=== PATIENT | female | born 1995 | race American Indian/Alaskan Native ===

== ENCOUNTER 2020-02-12 18:06 | Emergency (ER) | payer OTHER ==
--- NOTE | 2020-02-12 19:06 | Emergency Department Report ---
HPI - General Time Seen by Provider: 02/12/20 18:56 - HPI HPI: Room 4 The patient is a 24-year-old female present with a chief complaint of miscarriage. The patient states approximate 1-2 hours ago while in a vehicle she felt her water break and then she passed her fetus vaginally. The patient states her LMP was 11/03/2019 but she has not yet had an ultrasound for this . Patient complains of pelvic cramping. ED Past Medical Hx - Past Medical History Previous Medical History?: No - Surgical History Past Surgical History?: No - Family History Family history: no significant - Social History Smoking Status: Never Smoker Substance Use Type: None - Medications Home Medications: Home Medications Medication Instructions Recorded Confirmed Last Taken Type HYDROcodone/APAP 5-325 [Vera 1 - 2 each PO Q6HR PRN #14 tablet 02/12/20 Unknown Rx 5/325] Ibuprofen [Motrin 800 MG tab] 800 mg PO Q8HR PRN #20 tablet 02/12/20 Unknown Rx Methylergonovine [Methergine] 0.2 mg PO Q8HR #3 tablet 02/12/20 Unknown Rx ED Review of Systems ROS: Stated complaint: MISCARRIAGE Other details as noted in HPI Constitutional: no symptoms reported Respiratory: no symptoms reported Endocrine: no symptoms reported Gastrointestinal: other (Pelvic cramping) Genitourinary: abnormal menses Physical Exam - Physical Exam Physical Exam: GENERAL: The patient is well-developed well-nourished female lying on stretcher not appearing to be in acute distress. [] HEENT: Normocephalic. Atraumatic. Extraocular motions are intact. Patient has moist mucous membranes. NECK: Supple. Trachea midline CHEST/LUNGS: Clear to auscultation. There is no respiratory distress noted. HEART/CARDIOVASCULAR: Regular. There is no tachycardia. There is no gallop rub or murmur. ABDOMEN: Abdomen is soft, nontender. Patient has normal bowel sounds. There is no abdominal distention. SKIN: There is no rash. There is no edema. There is no diaphoresis. NEURO: The patient is awake, alert, and oriented. The patient is cooperative. The patient has normal speech MUSCULOSKELETAL: There is no evidence of acute injury. PELVIC: ED Course - Consultations Consultation #1: 02/12/20 22:16 Patient's STACK CLERK called ([phone]) 02/12/20 22:[address] Lowry-recommends Methergine 200 mcg every 8 hours x24 hours and follow-up in the office in the next few days ED Medical Decision Making - Lab Data Result diagrams: 02/12/20 19:59 02/12/20 19:59 - Radiology Data Radiology results: report reviewed (Pelvic ultrasound), image reviewed (Pelvic ultrasound) Findings [facility] [address] [place] [address] Ultrasound Report Signed Patient: BÁRBARA CORONA MR#: [id number] : 1995 Acct:[id number] Age/Sex: 24 / F ADM Date: 02/12/20 Loc: ED Attending Dr: Ordering Physician: SHADE ALBERT MD Date of Service: 02/12/20 P rocedure(s): US OB <= 14 weeks fetus Accession Number(s): [id number] cc: SHADE ALBERT MD EXAMINATION: Obstetrical Ultrasound INDICATION: The patient has a history of spontaneous . COMPARISON: No relevant prior studies are available for comparison. FINDINGS: Only transabdominal imaging was performed. The uterus is enlarged measuring 15.7 x 6.5 x 7.1 cm. The endometrial stripe has an echogenic appearance and measures a maximum of 1.8 cm. No intrauterine is visualized. No vascularity is associated with the endometrial stripe. The bilateral adnexal regions appear within normal limits. Doppler flow is demonstrated to both adnexal regions. There is no free pelvic fluid. IMPRESSION: 1. Mild thickening of the endometrial stripe which may be related to recent changes associated with . Sonographic follow-up can be as clinically indicated. Signer Name: Joyce Zuleta MD Signed: 02/12/2020 8:20 PM Workstation Name: [id number] Transcribed By: EB Dictated By: Joyce Zuleta MD Electronically Authenticated By: Joyce Zuleta MD Signed Date/Time: 02/12/202019 DD/ 16 TD/TT: - Differential Diagnosis Spontaneous , incomplete Critical care attestation.: If time is entered above; I have spent that time in minutes in the direct care of this critically ill patient, excluding procedure time. ED Disposition Clinical Impression: Spontaneous Disposition: DC-01 TO HOME OR SELFCARE Is pt being admited?: No Does the pt Need Aspirin: No Condition: Stable Instructions: Spontaneous Miscarriage (ED) Additional Instructions: Return to the emergency department should you develop worsening symptoms, inability to tolerate food or liquids, high fever or any other concerns Prescriptions: Methylergonovine [Methergine] 0.2 mg PO Q8HR #3 tablet Ibuprofen [Motrin 800 MG tab] 800 mg PO Q8HR PRN #20 tablet PRN Reason: Pain, Moderate (4-6) HYDROcodone/APAP 5-325 [Vera 5/325] 1 - 2 each PO Q6HR PRN #14 tablet PRN Reason: Pain Referrals: Your, STACK CLERK [Other] - ERIC Time of Disposition: 22:24
--- NOTE | 2020-02-12 20:24 | Ultrasound Report ---
EXAMINATION: Obstetrical Ultrasound INDICATION: The patient has a history of spontaneous . COMPARISON: No relevant prior studies are available for comparison. FINDINGS: Only transabdominal imaging was performed. The uterus is enlarged measuring 15.7 x 6.5 x 7.1 cm. The endometrial stripe has an echogenic appeara nce and measures a maximum of 1.8 cm. No intrauterine is visualized. No vascularity is asso ciated with the endometrial stripe. The bilateral adnexal regions appear within normal limits. Doppler flow is demonstrated to both adnex al regions. There is no free pelvic fluid. IMPRESSION: 1. Mild thickening of the endometrial stripe which may be related to recent changes associated with . Sonographic follow-up can be as clinically indicated. Signer Name: Joyce Zuleta MD Signed: 02/12/2020 8:20 PM Workstation Name: [id number]
[2020-02-12] MEDS ORDERED: ONDANSETRON 4 MG/2 ML INJ ONE (20:31)
[2020-02-12] MEDS ORDERED: fentaNYL 100 MCG/2 ML INJ ONE (20:32)
[2020-02-12] MEDS ORDERED: fentaNYL 100 MCG/2 ML INJ IV ONE (20:36)
[2020-02-12] MEDS ORDERED: ONDANSETRON 4 MG/2 ML INJ IV ONE (20:36)
[2020-02-12 20:39] LABS: Basophils % (Auto) 0.2 % (0.0-1.8); Eosinophils # (Auto) 0.1 K/mm3 (0.0-0.4); Eosinophils % (Auto) 0.9 % (0.0-4.3); Hematocrit 43.3 % (30.3-42.9); Hemoglobin 14.4 gm/dl (10.1-14.3); Lymphocytes # (Auto) 0.7 K/mm3 (1.2-5.4); Lymphocytes % (Auto) 5.8 % (13.4-35.0); Mean Corpuscular HGB Conc 33 % (30-34); Mean Corpuscular Volume 87 fl (79-97); Monocytes # (Auto) 0.5 K/mm3 (0.0-0.8); Monocytes % (Auto) 4.6 % (0.0-7.3); Platelet Count 166 K/mm3 (140-440); Red Blood Count 4.99 M/mm3 (3.65-5.03); Red Cell Distribution Width 12.7 % (13.2-15.2)
[2020-02-12 20:55] LABS: BUN/Creatinine Ratio 10; Blood Urea Nitrogen 5 mg/dL (7-17); Calcium 8.9 mg/dL (8.4-10.2); Hemolysis Index 4
[2020-02-12 22:14] VITALS: BP 97/48
[2020-02-12] MEDS ORDERED: SODIUM CHLORIDE 0.9% 1000 ML 1,000 ML ONE (22:21)
[2020-02-12] MEDS ORDERED: SODIUM CHLORIDE 0.9% 1000 ML 1,000 ML IV ONE (22:42)
== END 2020-02-12 23:30 | disposition home or self-care (01) ==
LOC: ED 18:06
DX: O03.9 Complete or unspecified spontaneous abortion without complication (principal); Z3A.08 8 weeks gestation of pregnancy; Z79.899 Other long term (current) drug therapy
CPT/HCPCS: 36415; 76801; 80048; 84702; 85025; 86900; 86901; 96374; 96375; 99284; J2405; J3010; J7030